=== PATIENT | female | born 1970 | race Caucasian/White ===

== ENCOUNTER 2018-01-15 22:58 | Inpatient (IN) | payer MEDICAID ==
[2018-01-15] MEDS: CEFEPIME 2GM/50 ML (PMX) 50 ML IVPB (23:31)
[2018-01-15] MEDS: ONDANSETRON 4 MG INJ IV (23:31)
[2018-01-15] MEDS: LACTATED RINGER'S 1,000 ML IV (23:33)
[2018-01-15] MEDS: SOD CHLORIDE 0.9% 1,000 ML IV (23:33)
[2018-01-15 23:39] LABS: ADD MAN DIFF? NO
[2018-01-15 23:41] LABS: WHITE BLOOD COUNT 8.3 10^3/ul (4.8-10.8)
[2018-01-15 23:41] LABS: ABNORMAL IP MESSAGE 1; BASOPHILS % 0.4 % (0.0-2.0); EOSINOPHILS % 0.1 % (0.0-7.0); HEMATOCRIT 20.2 % (37.0-47.0); LYMPHOCYTES # 1.4 10^3/ul (0.8-2.9); LYMPHOCYTES % 16.6 % (15.0-51.0); MEAN CORPUSCULAR HEMOGLOBIN 12.9 pg (29.0-33.0); MEAN CORPUSCULAR HGB CONC 23.3 g/dl (32.0-37.0); MEAN CORPUSCULAR VOLUME 55.6 fl (82.0-101.0); MONOCYTE # 0.5 10^3/ul (0.3-0.9); MONOCYTES % 5.6 % (0.0-11.0); NEUTROPHIL # 6.3 10^3/ul (1.6-7.5); NEUTROPHILS % 76.6 % (39.0-77.0); NUCLEATED RED BLOOD CELLS # 0.1 10^3/ul (0.0-0.0); NUCLEATED RED BLOOD CELLS% 1.1 /100WBC (0.0-0.0); PLATELET COUNT 331 10^3/UL (140-415); RED BLOOD COUNT 3.63 10^6/ul (4.20-5.40); RED CELL DISTRIBUTION WIDTH 26.4 % (11.5-14.5)
[2018-01-15 23:54] LABS: HEMOGLOBIN 4.7 g/dl (12.0-16.0); POSITIVE DIFF @See below
[2018-01-16 00:02] LABS: INR 1.09; PROTIME 14.3 Sec (11.9-14.9); PT RATIO 1.1
[2018-01-16 00:02] LABS: LACTIC ACID 1.6 mmol/L (0.5-2.0)
[2018-01-16 00:03] LABS: PARTIAL THROMBOPLASTIN TIME 28.4 Sec (25.0-35.0)
[2018-01-16 00:04] LABS: ALANINE AMINOTRANSFERASE 24 IU/L (13-69); ALBUMIN 4.8 g/dl (3.3-4.9); ALBUMIN/GLOBULIN RATIO 1.29; ALKALINE PHOSPHATASE 80 IU/L (42-121); ANION GAP 20 (8-16); ASPARTATE AMINO TRANSFERASE 30 IU/L (15-46); BILIRUBIN,INDIRECT 0.6 mg/dl (0-1.1); BILIRUBIN,TOTAL 0.6 mg/dl (0.2-1.3); BLOOD UREA NITROGEN 7 mg/dl (7-20); CALCIUM 9.4 mg/dl (8.4-10.2); CARBON DIOXIDE 22 mmol/L (21-31); CHLORIDE 104 mmol/L (97-110); CREATININE 0.55 mg/dl (0.44-1.00); GLUCOSE 117 mg/dl (70-220); LIPASE 92 U/L (23-300); POTASSIUM 3.6 mmol/L (3.5-5.1); SODIUM 142 mmol/L (135-144); TOTAL PROTEIN 8.5 g/dl (6.1-8.1)
[2018-01-16] MEDS: SOD CHLORIDE 0.9% 250 ML IV (00:15)
[2018-01-16 00:16] LABS: TROPONIN-I < 0.010 ng/ml (0.000-0.120)
[2018-01-16 00:20] LABS: FREE THYROXINE INDEX (Calc) 3.82 ug/ml (0.65-3.89); T3 UPTAKE 30.1 % (23.5-40.5); T4 (THYROXINE) 12.7 ug/dl (5.5-11.0)
[2018-01-16 00:56] LABS: ADD UMIC YES; UR ASCORBIC ACID NEGATIVE (NEGATIVE); UR BACTERIA FEW /HPF (NONE SEEN); UR BILIRUBIN (Dip) NEGATIVE (NEGATIVE); UR BLOOD (Dip) 2+ mg/dL (NEGATIVE); UR CLARITY SLIGHTLY CLOUDY (CLEAR); UR COLOR YELLOW (YELLOW); UR GLUCOSE (Dip) NEGATIVE (NEGATIVE); UR KETONES (Dip) 1+ mg/dL (NEGATIVE); UR LEUKOCYTE ESTERASE (Dip) NEGATIVE Leu/ul (NEGATIVE); UR MUCUS MANY /HPF (NONE SEEN); UR NITRITE (Dip) NEGATIVE (NEGATIVE); UR RBC 2 /HPF (0-5); UR SPECIFIC GRAVITY (Dip) 1.024 (1.003-1.030); UR SQUAMOUS EPITHELIAL CELL FEW /HPF (FEW); UR TOTAL PROTEIN (Dip) 1+ mg/dl (NEGATIVE); UR UROBILINOGEN (Dip) NEGATIVE (NEGATIVE); UR WBC 2 /HPF (0-5)
[2018-01-16 01:39] LABS: AMPHETAMINE/METHAMPHETAMINE Negative (NEGATIVE); BARBITURATES Negative (NEGATIVE); BENZODIAZEPINES Negative (NEGATIVE); CANNABINOIDS Negative (NEGATIVE); COCAINE Negative (NEGATIVE); OPIATES Negative (NEGATIVE)
[2018-01-16] MEDS: morphine 4 MG/ML VIAL IV (02:01)
[2018-01-16] MEDS: ASPIRIN 81 MG TAB PO (02:02)
[2018-01-16] MEDS ORDERED: ALBUTEROL/IPRATROPIUM (NEB) 3 ML AMP NEB (03:00)
[2018-01-16 04:08] LABS: ADD MAN DIFF? NO
[2018-01-16] MEDS: FUROSEMIDE 40 MG INJ IV (04:08)
[2018-01-16 04:29] LABS: ABNORMAL IP MESSAGE 1; BASOPHILS % 0.3 % (0.0-2.0); EOSINOPHILS % 0.3 % (0.0-7.0); LYMPHOCYTES # 1.3 10^3/ul (0.8-2.9); LYMPHOCYTES % 17.6 % (15.0-51.0); MEAN CORPUSCULAR HEMOGLOBIN 13.3 pg (29.0-33.0); MEAN CORPUSCULAR HGB CONC 24.2 g/dl (32.0-37.0); MEAN CORPUSCULAR VOLUME 55.1 fl (82.0-101.0); MONOCYTE # 0.4 10^3/ul (0.3-0.9); MONOCYTES % 5.7 % (0.0-11.0); NEUTROPHIL # 5.6 10^3/ul (1.6-7.5); NEUTROPHILS % 74.9 % (39.0-77.0); NUCLEATED RED BLOOD CELLS # 0.1 10^3/ul (0.0-0.0); NUCLEATED RED BLOOD CELLS% 0.9 /100WBC (0.0-0.0); RED CELL DISTRIBUTION WIDTH 25.9 % (11.5-14.5)
[2018-01-16 04:29] LABS: WHITE BLOOD COUNT 7.4 10^3/ul (4.8-10.8)
[2018-01-16 04:34] LABS: HEMATOCRIT 15.7 % (37.0-47.0); IRON 12 ug/dl (35-150); RED BLOOD COUNT 2.85 10^6/ul (4.20-5.40)
[2018-01-16 04:35] LABS: LACTATE DEHYDROGENASE 496 IU/L (313-618); LACTIC ACID 0.8 mmol/L (0.5-2.0)
[2018-01-16 04:35] LABS: PLATELET COUNT 248 10^3/UL (140-415); POSITIVE DIFF @See below; RETICULOCYTE COUNT # 0.031 X10^6 (0.020-0.110); RETICULOCYTE COUNT % 1.1 % (0.5-1.5)
[2018-01-16 04:36] LABS: ALANINE AMINOTRANSFERASE 23 IU/L (13-69); ALBUMIN 3.4 g/dl (3.3-4.9); ALBUMIN/GLOBULIN RATIO 1.09; ALKALINE PHOSPHATASE 55 IU/L (42-121); ANION GAP 15 (8-16); ASPARTATE AMINO TRANSFERASE 19 IU/L (15-46); BILIRUBIN,INDIRECT 0.3 mg/dl (0-1.1); BILIRUBIN,TOTAL 0.3 mg/dl (0.2-1.3); BLOOD UREA NITROGEN 5 mg/dl (7-20); CARBON DIOXIDE 21 mmol/L (21-31); CHLORIDE 111 mmol/L (97-110); CREATININE 0.53 mg/dl (0.44-1.00); GLUCOSE 101 mg/dl (70-220); HEMOGLOBIN 3.8 g/dl (12.0-16.0); POTASSIUM 3.7 mmol/L (3.5-5.1); SODIUM 143 mmol/L (135-144); TOTAL PROTEIN 6.5 g/dl (6.1-8.1)
[2018-01-16 04:43] LABS: % IRON SATURATION 3 % SAT (22-52); TOTAL IRON BINDING CAPACITY 359 ug/dl (241-421)
[2018-01-16 05:12] LABS: FERRITIN 3.7 ng/ml (6.2-137.0)
[2018-01-16] MEDS: ACETAMINOPHEN 650MG/20.3ML CUP PO (06:07)
[2018-01-16] MEDS ORDERED: HEPARIN 5,000 UNIT/0.5 ML VIAL SC (09:00)
[2018-01-16] MEDS: CEFTRIAXONE 1 GM/50 ML (PMX) 50 ML IVPB ×2 (10:17→20:07)
[2018-01-16] MEDS: ASPIRIN (EC) 81 MG TAB PO (10:17)
[2018-01-16] MEDS: FAMOTIDINE 20 MG INJ IV ×2 (10:17→20:06)
[2018-01-16] MEDS: SOD CHLORIDE 0.9% 250 ML IV* (10:37)
[2018-01-16] MEDS: DOCUSATE SODIUM 100 MG CAP PO ×3 (13:00→20:01)
[2018-01-16] MEDS ORDERED: LEVETIRACETAM 1000 MG (PMX) 100 ML IVPB (16:00)
[2018-01-16 16:27] LABS: IMMEDIATE SPIN CROSSMATCH 1 6
[2018-01-16] MEDS: LIDOCAINE 1% (MPF) 5 ML VIAL SC (17:25)
[2018-01-16] MEDS: NACL 3% 500 ML IV ×3 (18:38→21:47)
[2018-01-16] MEDS: LEVETIRACETAM 500 MG (PMX) 100 ML IVPB (18:38)
[2018-01-16 19:29] LABS: CHOL/HDL RATIO 3.3 RATIO; HDL CHOLESTEROL 24 mg/dl (34-88); LDL CHOLESTEROL,CALCULATED 42 mg/dl; TRIGLYCERIDES 69 mg/dl (0-149)
[2018-01-16 19:29] LABS: CHOLESTEROL 80 mg/dl (100-200)
[2018-01-16 19:47] LABS: ANION GAP 14 (8-16); BLOOD UREA NITROGEN 5 mg/dl (7-20); CALCIUM 8.3 mg/dl (8.4-10.2); CARBON DIOXIDE 22 mmol/L (21-31); CHLORIDE 107 mmol/L (97-110); CREATININE 0.51 mg/dl (0.44-1.00); GLUCOSE 102 mg/dl (70-220); POTASSIUM 3.3 mmol/L (3.5-5.1); SODIUM 140 mmol/L (135-144)
[2018-01-16] MEDS: ATORVASTATIN 20 MG TAB PO (20:01)
[2018-01-16] MEDS: SOD FERRIC GLUC COMPLX 125 MG in SOD CHLORIDE 0.9% 100 ML IVPB (20:26)
[2018-01-17 01:26] LABS: WHITE BLOOD COUNT 5.1 10^3/ul (4.8-10.8)
[2018-01-17 01:26] LABS: ABNORMAL IP MESSAGE 1; HEMOGLOBIN 8.2 g/dl (12.0-16.0); MEAN CORPUSCULAR HGB CONC 28.9 g/dl (32.0-37.0); NUCLEATED RED BLOOD CELLS% 2.4 /100WBC (0.0-0.0)
[2018-01-17 01:32] LABS: ADD MAN DIFF? YES; HEMATOCRIT 28.4 % (37.0-47.0); MEAN CORPUSCULAR HEMOGLOBIN 20.2 pg (29.0-33.0); MEAN CORPUSCULAR VOLUME 70.1 fl (82.0-101.0); PLATELET COUNT 169 10^3/UL (140-415); POSITIVE DIFF @See below; RED BLOOD COUNT 4.05 10^6/ul (4.20-5.40)
[2018-01-17 01:47] LABS: ANION GAP 12 (8-16); BLOOD UREA NITROGEN 4 mg/dl (7-20); CALCIUM 8.1 mg/dl (8.4-10.2); CARBON DIOXIDE 21 mmol/L (21-31); CHLORIDE 116 mmol/L (97-110); CREATININE 0.56 mg/dl (0.44-1.00); GLUCOSE 103 mg/dl (70-220); POTASSIUM 3.3 mmol/L (3.5-5.1); SODIUM 146 mmol/L (135-144)
[2018-01-17 04:00] LABS: ANISOCYTOSIS 2+ (0-0); BAND NEUTROPHILS #M 0.1 10^3/ul (0.0-0.6); BAND NEUTROPHILS % (M) 3 % (0-4); ERYTHROBLAST% (NRBC) (M) 5 % (0-0); GIANT THROMBO% (M) 1 % (0-0); HYPOCHROMASIA 3+ (0-0); LYMPHOCYTES #M 0.4 10^3/ul (0.8-2.9); LYMPHOCYTES % (M) 9 % (15-51); MICROCYTOSIS 2+ (0-0); MONOCYTE #M 0.1 10^3/ul (0.3-0.9); MONOCYTES % (M) 3 % (0-11); PLATELET ESTIMATE NORMAL; POIKILOCYTOSIS 2+ (0-0); POLYCHROMASIA 3+ (0-0); REACTIVE LYMPHOCYTES% (M) 1 % (0-0); SEG NEUT #M 4.3 10^3/ul (1.6-7.5); SEGMENTED NEUTROPHILS (M) % 84 % (39-77); SMUDGE%M 6 % (0-0)
[2018-01-17 05:25] LABS: WHITE BLOOD COUNT 5.9 10^3/ul (4.8-10.8)
[2018-01-17 05:25] LABS: ABNORMAL IP MESSAGE 1; HEMATOCRIT 27.8 % (37.0-47.0); MEAN CORPUSCULAR HEMOGLOBIN 20.3 pg (29.0-33.0); MEAN CORPUSCULAR HGB CONC 28.8 g/dl (32.0-37.0); MEAN CORPUSCULAR VOLUME 70.6 fl (82.0-101.0); NUCLEATED RED BLOOD CELLS% 3.2 /100WBC (0.0-0.0); PLATELET COUNT 145 10^3/UL (140-415); RED BLOOD COUNT 3.94 10^6/ul (4.20-5.40)
[2018-01-17 05:35] LABS: ADD MAN DIFF? YES; POSITIVE DIFF @See below
[2018-01-17 05:45] LABS: ANION GAP 9 (8-16); BLOOD UREA NITROGEN 5 mg/dl (7-20); CALCIUM 8.1 mg/dl (8.4-10.2); CARBON DIOXIDE 20 mmol/L (21-31); CHLORIDE 123 mmol/L (97-110); CREATININE 0.54 mg/dl (0.44-1.00); GLUCOSE 102 mg/dl (70-220); POTASSIUM 3.2 mmol/L (3.5-5.1); SODIUM 149 mmol/L (135-144)
[2018-01-17] MEDS: NACL 3% 500 ML IV (05:48)
[2018-01-17 07:00] LABS: ANISOCYTOSIS 3+ (0-0); ERYTHROBLAST% (NRBC) (M) 8 % (0-0); GIANT THROMBO% (M) 1 % (0-0); HYPOCHROMASIA 2+ (0-0); LYMPHOCYTES #M 0.5 10^3/ul (0.8-2.9); LYMPHOCYTES % (M) 9 % (15-51); MICROCYTOSIS 3+ (0-0); MONOCYTE #M 0.4 10^3/ul (0.3-0.9); MONOCYTES % (M) 7 % (0-11); OVALOCYTES 1+ (0-0); PLATELET ESTIMATE NORMAL; POIKILOCYTOSIS 2+ (0-0); POLYCHROMASIA 3+ (0-0); SEGMENTED NEUTROPHILS (M) % 84 % (39-77); SMUDGE%M 12 % (0-0)
[2018-01-17] MEDS: DOCUSATE SODIUM 100 MG CAP PO ×3 (08:49→20:46)
[2018-01-17] MEDS: LEVETIRACETAM 500 MG (PMX) 100 ML IVPB ×2 (08:50→20:52)
[2018-01-17] MEDS: CEFTRIAXONE 1 GM/50 ML (PMX) 50 ML IVPB ×2 (09:22→20:53)
[2018-01-17] MEDS: FAMOTIDINE 20 MG INJ IV ×2 (09:22→20:53)
[2018-01-17] MEDS ORDERED: VANCOMYCIN IV PER PHARMACY XX (10:00)
[2018-01-17] MEDS: POTASSIUM CHLORIDE (SR) 20 MEQ TAB PO (10:10)
[2018-01-17 12:08] LABS: ANION GAP 12 (8-16); BLOOD UREA NITROGEN 3 mg/dl (7-20); CALCIUM 8.1 mg/dl (8.4-10.2); CARBON DIOXIDE 21 mmol/L (21-31); CHLORIDE 120 mmol/L (97-110); CREATININE 0.51 mg/dl (0.44-1.00); GLUCOSE 120 mg/dl (70-220); POTASSIUM 3.3 mmol/L (3.5-5.1); SODIUM 150 mmol/L (135-144)
[2018-01-17] MEDS: VANCOMYCIN 1.25 GM in SOD CHLORIDE 0.9% 250 ML IVPB (12:20)
[2018-01-17 12:40] LABS: HIV 1&2 ANTIBODY NEGATIVE (NEGATIVE)
[2018-01-17] MEDS: NS + KCL 20 MEQ 1,000 ML IV (13:25)
[2018-01-17 15:39] LABS: OCCULT BLOOD STOOL NEGATIVE (NEGATIVE)
[2018-01-17] MEDS: SOD FERRIC GLUC COMPLX 125 MG in SOD CHLORIDE 0.9% 100 ML IVPB (17:56)
[2018-01-17 18:39] LABS: ANION GAP 8 (8-16); BLOOD UREA NITROGEN 4 mg/dl (7-20); CALCIUM 8.2 mg/dl (8.4-10.2); CARBON DIOXIDE 19 mmol/L (21-31); CHLORIDE 124 mmol/L (97-110); CREATININE 0.55 mg/dl (0.44-1.00); GLUCOSE 108 mg/dl (70-220); POTASSIUM 3.6 mmol/L (3.5-5.1); SODIUM 147 mmol/L (135-144)
[2018-01-17 19:34] LABS: RAPID PLASMA REAGIN NONREACTIVE (NR)
[2018-01-17] MEDS: VANCOMYCIN 750 MG in SOD CHLORIDE 0.9% 150 ML IVPB (20:13)
[2018-01-17] MEDS: ATORVASTATIN 80 MG TAB PO (20:53)
[2018-01-18] MEDS: NS + KCL 20 MEQ 1,000 ML IV (00:03)
[2018-01-18 00:52] LABS: ANION GAP 14 (8-16); BLOOD UREA NITROGEN 3 mg/dl (7-20); CALCIUM 8.4 mg/dl (8.4-10.2); CARBON DIOXIDE 18 mmol/L (21-31); CHLORIDE 117 mmol/L (97-110); GLUCOSE 93 mg/dl (70-220); POTASSIUM 3.4 mmol/L (3.5-5.1); SODIUM 146 mmol/L (135-144)
[2018-01-18 05:02] LABS: ADD MAN DIFF? NO
[2018-01-18 05:10] LABS: WHITE BLOOD COUNT 7.6 10^3/ul (4.8-10.8)
[2018-01-18 05:10] LABS: ABNORMAL IP MESSAGE 1; BASOPHIL # 0.1 10^3/ul (0.0-0.1); BASOPHILS % 1.2 % (0.0-2.0); EOSINOPHILS % 0.4 % (0.0-7.0); LYMPHOCYTES # 1.4 10^3/ul (0.8-2.9); LYMPHOCYTES % 18.1 % (15.0-51.0); MEAN CORPUSCULAR HEMOGLOBIN 21.7 pg (29.0-33.0); MEAN CORPUSCULAR HGB CONC 29.2 g/dl (32.0-37.0); MEAN CORPUSCULAR VOLUME 74.3 fl (82.0-101.0); MONOCYTE # 0.6 10^3/ul (0.3-0.9); MONOCYTES % 7.4 % (0.0-11.0); NEUTROPHIL # 5.4 10^3/ul (1.6-7.5); NEUTROPHILS % 70.4 % (39.0-77.0); NUCLEATED RED BLOOD CELLS # 0.4 10^3/ul (0.0-0.0); NUCLEATED RED BLOOD CELLS% 4.9 /100WBC (0.0-0.0); PLATELET COUNT 147 10^3/UL (140-415)
[2018-01-18] MEDS: VANCOMYCIN 750 MG in SOD CHLORIDE 0.9% 150 ML IVPB ×3 (05:17→19:56)
[2018-01-18 05:19] LABS: HEMATOCRIT 34.2 % (37.0-47.0); POSITIVE DIFF @See below
[2018-01-18 05:40] LABS: ANION GAP 9 (8-16); BLOOD UREA NITROGEN 4 mg/dl (7-20); CALCIUM 8.4 mg/dl (8.4-10.2); CARBON DIOXIDE 18 mmol/L (21-31); CHLORIDE 120 mmol/L (97-110); CREATININE 0.49 mg/dl (0.44-1.00); GLUCOSE 86 mg/dl (70-220); POTASSIUM 3.4 mmol/L (3.5-5.1); SODIUM 144 mmol/L (135-144)
[2018-01-18] MEDS: LEVETIRACETAM 500 MG (PMX) 100 ML IVPB ×2 (08:44→20:06)
[2018-01-18] MEDS: DOCUSATE SODIUM 100 MG CAP PO ×2 (09:01→20:05)
[2018-01-18] MEDS: FAMOTIDINE 20 MG INJ IV ×2 (09:01→20:05)
[2018-01-18] MEDS: CEFTRIAXONE 1 GM/50 ML (PMX) 50 ML IVPB ×2 (09:05→20:06)
[2018-01-18] MEDS: NACL 3% 100 ML IV (10:15)
[2018-01-18] MEDS: NACL 3% 500 ML IV ×2 (11:21→19:56)
[2018-01-18 11:36] LABS: ANION GAP 11 (8-16); BLOOD UREA NITROGEN 3 mg/dl (7-20); CALCIUM 8.4 mg/dl (8.4-10.2); CARBON DIOXIDE 18 mmol/L (21-31); CHLORIDE 118 mmol/L (97-110); CREATININE 0.46 mg/dl (0.44-1.00); GLUCOSE 87 mg/dl (70-220); POTASSIUM 3.4 mmol/L (3.5-5.1); SODIUM 144 mmol/L (135-144)
[2018-01-18 11:40] LABS: VANCOMYCIN,TROUGH 11.7 ug/ml (10.0-20.0)
[2018-01-18 12:50] LABS: CANCER ANTIGEN 125 35.3 U/ml (0.0-35.0); CANCER ANTIGEN 19-9 12.2 U/ml (0.0-37.0)
[2018-01-18 12:50] LABS: ALPHA FETOPROTEIN 3.27 IU/L (0.00-7.21); CARCINOEMBRYONIC ANTIGEN 0.5 ng/ml (0.0-5.0)
[2018-01-18] MEDS: ALBUTEROL/IPRATROPIUM (NEB) 3 ML AMP HHN ×2 (15:29→19:32)
[2018-01-18] MEDS ORDERED: ALBUTEROL/IPRATROPIUM (NEB) 3 ML AMP HHN (15:30)
[2018-01-18] MEDS: RACEPINEPHRINE 2.25%(NEB) 0.5 ML AMP HHN (16:10)
[2018-01-18] MEDS: DEXAMETHASONE 10 MG/ML 1 ML INJ IV (16:42)
[2018-01-18 17:15] LABS: AADO2 Arterial 45.6 mmHg (7.0-24.0); Allen Test ACCEPTAB; Arterial Base Excess -6.1 mmol/L (-3.0-3); Arterial Blood Gas Oxygen Sat 95.2 mmHG (95.0-98.0); Arterial COHb 0.7 % (0.0-3.0); Arterial Fraction of Oxyhgb 94.2 % (93.0-99.0); Arterial HCO3 16.7 mmol/L (22.0-26.0); Arterial MetHb 0.4 % (0.0-1.5); Arterial Total Hemglobin 11.6 g/dl (12.0-18.0); Arterial pCO2 25.5 mmhg (35-45); MODE ROOM AIR; Site Right Radial
[2018-01-18] MEDS: SOD FERRIC GLUC COMPLX 125 MG in SOD CHLORIDE 0.9% 100 ML IVPB (17:26)
[2018-01-18 18:23] LABS: ANION GAP 9 (8-16); BLOOD UREA NITROGEN 3 mg/dl (7-20); CALCIUM 8.6 mg/dl (8.4-10.2); CARBON DIOXIDE 18 mmol/L (21-31); CHLORIDE 119 mmol/L (97-110); CREATININE 0.48 mg/dl (0.44-1.00); GLUCOSE 109 mg/dl (70-220); POTASSIUM 3.2 mmol/L (3.5-5.1); SODIUM 143 mmol/L (135-144)
[2018-01-18] MEDS ORDERED: NACL 3% 150 ML IV (19:00)
[2018-01-18] MEDS: NACL 3% 150 ML IV (19:30)
[2018-01-18] MEDS: POTASSIUM CHLORIDE 100 ML IVPB ×2 (19:58→21:49)
[2018-01-18] MEDS: ATORVASTATIN 80 MG TAB PO (20:06)
[2018-01-19] MEDS: NACL 3% 500 ML IV ×4 (00:40→20:33)
[2018-01-19] MEDS: ALBUTEROL/IPRATROPIUM (NEB) 3 ML AMP HHN ×2 (01:10→08:49)
[2018-01-19 01:31] LABS: ANION GAP 15 (8-16); BLOOD UREA NITROGEN 2 mg/dl (7-20); CALCIUM 8.7 mg/dl (8.4-10.2); CARBON DIOXIDE 17 mmol/L (21-31); CHLORIDE 117 mmol/L (97-110); CREATININE 0.47 mg/dl (0.44-1.00); GLUCOSE 117 mg/dl (70-220); SODIUM 145 mmol/L (135-144)
[2018-01-19] MEDS: VANCOMYCIN 750 MG in SOD CHLORIDE 0.9% 150 ML IVPB ×2 (03:11→11:30)
[2018-01-19 06:38] LABS: ADD MAN DIFF? NO
[2018-01-19 06:57] LABS: ABNORMAL IP MESSAGE 1; BASOPHILS % 0.4 % (0.0-2.0); HEMATOCRIT 36.6 % (37.0-47.0); HEMOGLOBIN 10.8 g/dl (12.0-16.0); LYMPHOCYTES # 0.8 10^3/ul (0.8-2.9); LYMPHOCYTES % 10.9 % (15.0-51.0); MEAN CORPUSCULAR HEMOGLOBIN 21.9 pg (29.0-33.0); MEAN CORPUSCULAR HGB CONC 29.5 g/dl (32.0-37.0); MEAN CORPUSCULAR VOLUME 74.2 fl (82.0-101.0); MONOCYTE # 0.4 10^3/ul (0.3-0.9); MONOCYTES % 5.4 % (0.0-11.0); NEUTROPHIL # 5.9 10^3/ul (1.6-7.5); NEUTROPHILS % 81.8 % (39.0-77.0); NUCLEATED RED BLOOD CELLS # 0.2 10^3/ul (0.0-0.0); NUCLEATED RED BLOOD CELLS% 2.2 /100WBC (0.0-0.0); RED BLOOD COUNT 4.93 10^6/ul (4.20-5.40)
[2018-01-19 06:57] LABS: WHITE BLOOD COUNT 7.2 10^3/ul (4.8-10.8)
[2018-01-19 07:19] LABS: ANION GAP 15 (8-16); BLOOD UREA NITROGEN 2 mg/dl (7-20); CALCIUM 9.1 mg/dl (8.4-10.2); CARBON DIOXIDE 18 mmol/L (21-31); CHLORIDE 116 mmol/L (97-110); CREATININE 0.46 mg/dl (0.44-1.00); GLUCOSE 99 mg/dl (70-220); POTASSIUM 3.9 mmol/L (3.5-5.1); SODIUM 145 mmol/L (135-144)
[2018-01-19 07:29] LABS: PLATELET COUNT 209 10^3/UL (140-415); POSITIVE DIFF @See below
[2018-01-19] MEDS: FAMOTIDINE 20 MG INJ IV ×2 (08:00→21:44)
[2018-01-19] MEDS: DOCUSATE SODIUM 100 MG CAP PO ×2 (08:00→21:44)
[2018-01-19] MEDS: LEVETIRACETAM 500 MG (PMX) 100 ML IVPB ×2 (08:43→21:05)
[2018-01-19] MEDS: CEFTRIAXONE 1 GM/50 ML (PMX) 50 ML IVPB (09:07)
[2018-01-19 13:07] LABS: ANION GAP 10 (8-16); BLOOD UREA NITROGEN 3 mg/dl (7-20); CALCIUM 8.7 mg/dl (8.4-10.2); CARBON DIOXIDE 19 mmol/L (21-31); CHLORIDE 120 mmol/L (97-110); CREATININE 0.45 mg/dl (0.44-1.00); GLUCOSE 97 mg/dl (70-220); POTASSIUM 3.1 mmol/L (3.5-5.1); SODIUM 146 mmol/L (135-144)
[2018-01-19] MEDS: LEVOFLOXACIN 750MG/D5W (PMX) 150 ML IVPB (15:57)
[2018-01-19] MEDS: hydrALAzine 20 MG INJ IV (16:33)
[2018-01-19] MEDS: SOD FERRIC GLUC COMPLX 125 MG in SOD CHLORIDE 0.9% 100 ML IVPB (17:33)
[2018-01-19 19:15] LABS: ANION GAP 9 (8-16); BLOOD UREA NITROGEN 4 mg/dl (7-20); CALCIUM 8.4 mg/dl (8.4-10.2); CARBON DIOXIDE 19 mmol/L (21-31); CHLORIDE 120 mmol/L (97-110); CREATININE 0.43 mg/dl (0.44-1.00); GLUCOSE 94 mg/dl (70-220); POTASSIUM 3.2 mmol/L (3.5-5.1); SODIUM 145 mmol/L (135-144)
[2018-01-19] MEDS: ATORVASTATIN 80 MG TAB PO (21:44)
[2018-01-19] MEDS: ONDANSETRON 4 MG INJ IV (23:32)
[2018-01-20 01:32] LABS: ANION GAP 12 (8-16); BLOOD UREA NITROGEN 3 mg/dl (7-20); CALCIUM 8.5 mg/dl (8.4-10.2); CARBON DIOXIDE 20 mmol/L (21-31); CHLORIDE 117 mmol/L (97-110); CREATININE 0.46 mg/dl (0.44-1.00); GLUCOSE 90 mg/dl (70-220); SODIUM 146 mmol/L (135-144)
[2018-01-20] MEDS: POTASSIUM CHLORIDE 100 ML IVPB ×2 (03:42→05:51)
[2018-01-20] MEDS: NACL 3% 500 ML IV ×3 (03:44→19:25)
[2018-01-20 05:05] LABS: ADD MAN DIFF? NO
[2018-01-20 05:28] LABS: ABNORMAL IP MESSAGE 1; BASOPHILS % 0.5 % (0.0-2.0); EOSINOPHILS # 0.1 10^3/ul (0.0-0.5); HEMATOCRIT 34.5 % (37.0-47.0); HEMOGLOBIN 10.3 g/dl (12.0-16.0); LYMPHOCYTES % 12.6 % (15.0-51.0); MEAN CORPUSCULAR HEMOGLOBIN 22.4 pg (29.0-33.0); MEAN CORPUSCULAR HGB CONC 29.9 g/dl (32.0-37.0); MONOCYTE # 0.5 10^3/ul (0.3-0.9); MONOCYTES % 6.7 % (0.0-11.0); NEUTROPHILS % 78.7 % (39.0-77.0); NUCLEATED RED BLOOD CELLS # 0.1 10^3/ul (0.0-0.0); NUCLEATED RED BLOOD CELLS% 0.7 /100WBC (0.0-0.0); PLATELET COUNT 224 10^3/UL (140-415)
[2018-01-20 05:28] LABS: WHITE BLOOD COUNT 7.6 10^3/ul (4.8-10.8)
[2018-01-20 05:49] LABS: ANION GAP 9 (8-16); BLOOD UREA NITROGEN 3 mg/dl (7-20); CALCIUM 8.4 mg/dl (8.4-10.2); CARBON DIOXIDE 19 mmol/L (21-31); CHLORIDE 121 mmol/L (97-110); CREATININE 0.47 mg/dl (0.44-1.00); GLUCOSE 80 mg/dl (70-220); POTASSIUM 3.1 mmol/L (3.5-5.1); SODIUM 146 mmol/L (135-144)
[2018-01-20 05:51] LABS: POSITIVE DIFF @See below
[2018-01-20 06:47] LABS: ANION GAP 7 (8-16); BLOOD UREA NITROGEN 3 mg/dl (7-20); CALCIUM 8.3 mg/dl (8.4-10.2); CARBON DIOXIDE 20 mmol/L (21-31); CHLORIDE 121 mmol/L (97-110); CREATININE 0.48 mg/dl (0.44-1.00); GLUCOSE 81 mg/dl (70-220); POTASSIUM 3.3 mmol/L (3.5-5.1); SODIUM 145 mmol/L (135-144)
[2018-01-20] MEDS: hydrALAzine 20 MG INJ IV (06:54)
[2018-01-20] MEDS: LEVETIRACETAM 500 MG TAB PO ×2 (08:52→20:29)
[2018-01-20] MEDS: DOCUSATE SODIUM 100 MG CAP PO ×2 (08:54→20:29)
[2018-01-20 10:11] LABS: ANISOCYTOSIS 3+ (0-0); EOSINOPHILS % (M) 1 % (0-7); ERYTHROBLAST% (NRBC) (M) 1 % (0-0); GIANT THROMBO% (M) 3 % (0-0); LYMPHOCYTES #M 1.1 10^3/ul (0.8-2.9); LYMPHOCYTES % (M) 15 % (15-51); MICROCYTOSIS 2+ (0-0); MONOCYTE #M 0.3 10^3/ul (0.3-0.9); MONOCYTES % (M) 4 % (0-11); MYELOCYTES % (M) 1 % (0-0); PLATELET ESTIMATE NORMAL; POIKILOCYTOSIS 3+ (0-0); POLYCHROMASIA 3+ (0-0); SEGMENTED NEUTROPHILS (M) % 79 % (39-77); SMUDGE%M 3 % (0-0)
[2018-01-20 15:08] LABS: ANION GAP 13 (8-16); CALCIUM 8.6 mg/dl (8.4-10.2); CARBON DIOXIDE 19 mmol/L (21-31); CHLORIDE 116 mmol/L (97-110); CREATININE 0.42 mg/dl (0.44-1.00); GLUCOSE 85 mg/dl (70-220); POTASSIUM 3.3 mmol/L (3.5-5.1); SODIUM 145 mmol/L (135-144)
[2018-01-20 15:20] LABS: BLOOD UREA NITROGEN < 2 mg/dl (7-20)
[2018-01-20] MEDS: SOD FERRIC GLUC COMPLX 125 MG in SOD CHLORIDE 0.9% 100 ML IVPB (17:22)
[2018-01-20] MEDS: POTASSIUM CHLORIDE (SR) 20 MEQ TAB PO (20:28)
[2018-01-20] MEDS: ATORVASTATIN 80 MG TAB PO (20:29)
[2018-01-20 20:57] LABS: ANION GAP 8 (8-16); BLOOD UREA NITROGEN 5 mg/dl (7-20); CALCIUM 8.8 mg/dl (8.4-10.2); CARBON DIOXIDE 20 mmol/L (21-31); CHLORIDE 122 mmol/L (97-110); CREATININE 0.45 mg/dl (0.44-1.00); GLUCOSE 107 mg/dl (70-220); POTASSIUM 3.1 mmol/L (3.5-5.1); SODIUM 147 mmol/L (135-144)
[2018-01-21] MEDS: NACL 3% 500 ML IV ×3 (02:11→09:57)
[2018-01-21 05:04] LABS: ADD MAN DIFF? NO
[2018-01-21 05:06] LABS: ABNORMAL IP MESSAGE 1; BASOPHILS % 0.8 % (0.0-2.0); EOSINOPHILS # 0.5 10^3/ul (0.0-0.5); EOSINOPHILS % 10.2 % (0.0-7.0); HEMATOCRIT 35.2 % (37.0-47.0); HEMOGLOBIN 10.1 g/dl (12.0-16.0); LYMPHOCYTES % 18.4 % (15.0-51.0); MEAN CORPUSCULAR HEMOGLOBIN 22.1 pg (29.0-33.0); MEAN CORPUSCULAR HGB CONC 28.7 g/dl (32.0-37.0); MONOCYTE # 0.4 10^3/ul (0.3-0.9); MONOCYTES % 6.8 % (0.0-11.0); NEUTROPHIL # 3.4 10^3/ul (1.6-7.5); NEUTROPHILS % 63.4 % (39.0-77.0); PLATELET COUNT 215 10^3/UL (140-415); RED BLOOD COUNT 4.57 10^6/ul (4.20-5.40)
[2018-01-21 05:06] LABS: WHITE BLOOD COUNT 5.3 10^3/ul (4.8-10.8)
[2018-01-21 05:21] LABS: POSITIVE DIFF @See below
[2018-01-21 05:27] LABS: ANION GAP 11 (8-16); BLOOD UREA NITROGEN 3 mg/dl (7-20); CALCIUM 8.5 mg/dl (8.4-10.2); CARBON DIOXIDE 19 mmol/L (21-31); CHLORIDE 122 mmol/L (97-110); CREATININE 0.44 mg/dl (0.44-1.00); GLUCOSE 77 mg/dl (70-220); POTASSIUM 3.6 mmol/L (3.5-5.1); SODIUM 148 mmol/L (135-144)
[2018-01-21] MEDS: hydrALAzine 20 MG INJ IV ×2 (06:29→13:05)
[2018-01-21] MEDS: DOCUSATE SODIUM 100 MG CAP PO ×2 (08:09→21:00)
[2018-01-21] MEDS: LEVETIRACETAM 500 MG TAB PO ×2 (09:53→21:58)
[2018-01-21] MEDS: ONDANSETRON 4 MG INJ IV (10:31)
[2018-01-21] MEDS: ATORVASTATIN 80 MG TAB PO (21:58)
[2018-01-22] MEDS: ONDANSETRON 4 MG INJ IV (03:03)
[2018-01-22] MEDS: DOCUSATE SODIUM 100 MG CAP PO ×2 (09:00→20:40)
[2018-01-22] MEDS: LEVETIRACETAM 500 MG TAB PO ×2 (09:02→20:40)
[2018-01-22 09:08] LABS: ANION GAP 13 (8-16); BLOOD UREA NITROGEN 3 mg/dl (7-20); CALCIUM 8.7 mg/dl (8.4-10.2); CARBON DIOXIDE 21 mmol/L (21-31); CHLORIDE 112 mmol/L (97-110); CREATININE 0.42 mg/dl (0.44-1.00); GLUCOSE 79 mg/dl (70-220); SODIUM 143 mmol/L (135-144)
[2018-01-22] MEDS: POTASSIUM CHLORIDE (SR) 20 MEQ TAB PO (11:01)
[2018-01-22] MEDS: ALTEPLASE (CATHFLO) 2 MG INJ CATHETER (11:04)
[2018-01-22] MEDS: hydrALAzine 20 MG INJ IV (12:47)
[2018-01-22] MEDS: ATORVASTATIN 80 MG TAB PO (20:40)
[2018-01-23] MEDS: DOCUSATE SODIUM 100 MG CAP PO ×2 (08:28→21:08)
[2018-01-23] MEDS: hydrALAzine 20 MG INJ IV (08:29)
[2018-01-23] MEDS: LEVETIRACETAM 500 MG TAB PO ×2 (08:29→21:08)
[2018-01-23 09:17] LABS: ANION GAP 9 (8-16); BLOOD UREA NITROGEN 3 mg/dl (7-20); CALCIUM 8.6 mg/dl (8.4-10.2); CARBON DIOXIDE 25 mmol/L (21-31); CHLORIDE 109 mmol/L (97-110); CREATININE 0.47 mg/dl (0.44-1.00); GLUCOSE 81 mg/dl (70-220); POTASSIUM 3.3 mmol/L (3.5-5.1); SODIUM 140 mmol/L (135-144)
[2018-01-23 17:48] LABS: ANION GAP 10 (8-16); BLOOD UREA NITROGEN 3 mg/dl (7-20); CALCIUM 8.6 mg/dl (8.4-10.2); CARBON DIOXIDE 26 mmol/L (21-31); CHLORIDE 108 mmol/L (97-110); CREATININE 0.49 mg/dl (0.44-1.00); GLUCOSE 89 mg/dl (70-220); POTASSIUM 3.4 mmol/L (3.5-5.1); SODIUM 141 mmol/L (135-144)
[2018-01-23] MEDS ORDERED: MANNITOL 25% 50 ML INJ IV* (18:00)
[2018-01-23] MEDS: LIDOCAINE 1% (MPF) 5 ML VIAL SC (18:20)
[2018-01-23] MEDS: MANNITOL 20% 250 ML IV (18:30)
[2018-01-23] MEDS ORDERED: MANNITOL 20% 200 ML IV (18:30)
[2018-01-23] MEDS: NACL 3% 500 ML IV (21:08)
[2018-01-23] MEDS: ATORVASTATIN 80 MG TAB PO (21:08)
[2018-01-23] MEDS: NACL 3% 200 ML IV (21:08)
[2018-01-23 23:06] LABS: ANION GAP 10 (8-16); BLOOD UREA NITROGEN 2 mg/dl (7-20); CALCIUM 8.9 mg/dl (8.4-10.2); CARBON DIOXIDE 26 mmol/L (21-31); CHLORIDE 110 mmol/L (97-110); CREATININE 0.52 mg/dl (0.44-1.00); GLUCOSE 92 mg/dl (70-220); POTASSIUM 3.5 mmol/L (3.5-5.1); SODIUM 142 mmol/L (135-144)
[2018-01-24] MEDS: NACL 3% 500 ML IV ×5 (02:10→23:32)
[2018-01-24 04:57] LABS: ADD MAN DIFF? NO
[2018-01-24 05:00] LABS: ABNORMAL IP MESSAGE 1; BASOPHIL # 0.1 10^3/ul (0.0-0.1); EOSINOPHILS # 0.4 10^3/ul (0.0-0.5); EOSINOPHILS % 7.9 % (0.0-7.0); HEMATOCRIT 39.4 % (37.0-47.0); HEMOGLOBIN 11.9 g/dl (12.0-16.0); LYMPHOCYTES # 1.4 10^3/ul (0.8-2.9); LYMPHOCYTES % 26.7 % (15.0-51.0); MEAN CORPUSCULAR HEMOGLOBIN 23.7 pg (29.0-33.0); MEAN CORPUSCULAR HGB CONC 30.2 g/dl (32.0-37.0); MEAN CORPUSCULAR VOLUME 78.3 fl (82.0-101.0); MONOCYTE # 0.4 10^3/ul (0.3-0.9); MONOCYTES % 8.1 % (0.0-11.0); NEUTROPHIL # 2.8 10^3/ul (1.6-7.5); NEUTROPHILS % 55.9 % (39.0-77.0); PLATELET COUNT 295 10^3/UL (140-415); RED BLOOD COUNT 5.03 10^6/ul (4.20-5.40)
[2018-01-24 05:00] LABS: WHITE BLOOD COUNT 5.1 10^3/ul (4.8-10.8)
[2018-01-24 05:23] LABS: POSITIVE DIFF @See below
[2018-01-24 05:27] LABS: ANION GAP 9 (8-16); BLOOD UREA NITROGEN 2 mg/dl (7-20); CALCIUM 8.7 mg/dl (8.4-10.2); CARBON DIOXIDE 27 mmol/L (21-31); CHLORIDE 114 mmol/L (97-110); CREATININE 0.48 mg/dl (0.44-1.00); GLUCOSE 79 mg/dl (70-220); POTASSIUM 3.4 mmol/L (3.5-5.1); SODIUM 147 mmol/L (135-144)
[2018-01-24] MEDS: DOCUSATE SODIUM 100 MG CAP PO ×2 (08:43→16:44)
[2018-01-24] MEDS: LEVETIRACETAM 500 MG TAB PO ×2 (09:18→20:04)
[2018-01-24 11:29] LABS: ANION GAP 12 (8-16); BLOOD UREA NITROGEN 4 mg/dl (7-20); CALCIUM 8.3 mg/dl (8.4-10.2); CARBON DIOXIDE 24 mmol/L (21-31); CHLORIDE 112 mmol/L (97-110); CREATININE 0.45 mg/dl (0.44-1.00); GLUCOSE 84 mg/dl (70-220); POTASSIUM 3.1 mmol/L (3.5-5.1); SODIUM 145 mmol/L (135-144)
[2018-01-24] MEDS: POTASSIUM CHLORIDE (SR) 20 MEQ TAB PO (14:50)
[2018-01-24 17:05] LABS: ANION GAP 13 (8-16); BLOOD UREA NITROGEN 3 mg/dl (7-20); CALCIUM 8.5 mg/dl (8.4-10.2); CARBON DIOXIDE 23 mmol/L (21-31); CHLORIDE 111 mmol/L (97-110); CREATININE 0.45 mg/dl (0.44-1.00); GLUCOSE 80 mg/dl (70-220); POTASSIUM 3.7 mmol/L (3.5-5.1); SODIUM 143 mmol/L (135-144)
[2018-01-24] MEDS: NACL 3% 200 ML IV (19:04)
[2018-01-24] MEDS: ATORVASTATIN 80 MG TAB PO (20:03)
[2018-01-24] MEDS: hydrALAzine 20 MG INJ IV (22:58)
[2018-01-24 23:17] LABS: ANION GAP 8 (8-16); CALCIUM 8.5 mg/dl (8.4-10.2); CARBON DIOXIDE 24 mmol/L (21-31); CHLORIDE 114 mmol/L (97-110); CREATININE 0.43 mg/dl (0.44-1.00); GLUCOSE 76 mg/dl (70-220); POTASSIUM 3.7 mmol/L (3.5-5.1); SODIUM 142 mmol/L (135-144)
[2018-01-24 23:30] LABS: BLOOD UREA NITROGEN < 2 mg/dl (7-20)
[2018-01-25 05:15] LABS: ANION GAP 10 (8-16); CALCIUM 8.7 mg/dl (8.4-10.2); CARBON DIOXIDE 22 mmol/L (21-31); CHLORIDE 115 mmol/L (97-110); CREATININE 0.39 mg/dl (0.44-1.00); GLUCOSE 72 mg/dl (70-220); POTASSIUM 3.5 mmol/L (3.5-5.1); SODIUM 143 mmol/L (135-144)
[2018-01-25] MEDS: NACL 3% 500 ML IV ×3 (05:17→15:57)
[2018-01-25 05:19] LABS: BLOOD UREA NITROGEN < 2 mg/dl (7-20)
[2018-01-25] MEDS: DOCUSATE SODIUM 100 MG CAP PO ×2 (08:08→21:07)
[2018-01-25] MEDS: LEVETIRACETAM 500 MG TAB PO ×2 (08:08→21:07)
[2018-01-25 12:28] LABS: ANION GAP 8 (8-16); BLOOD UREA NITROGEN 3 mg/dl (7-20); CALCIUM 7.8 mg/dl (8.4-10.2); CARBON DIOXIDE 21 mmol/L (21-31); CHLORIDE 134 mmol/L (97-110); CREATININE 0.36 mg/dl (0.44-1.00); GLUCOSE 83 mg/dl (70-220); POTASSIUM 3.1 mmol/L (3.5-5.1); SODIUM 160 mmol/L (135-144)
[2018-01-25] MEDS: ATORVASTATIN 80 MG TAB PO (21:07)
[2018-01-25] MEDS: MAGNESIUM SULFATE 1 GM/D5W 100 ML IVPB (22:16)
[2018-01-25] MEDS: POTASSIUM CHLORIDE (SR) 20 MEQ TAB PO (22:16)
[2018-01-26] MEDS: ACETAMINOPHEN 650MG/20.3ML CUP PO (03:19)
[2018-01-26 06:13] LABS: ANION GAP 13 (8-16); BLOOD UREA NITROGEN 4 mg/dl (7-20); CARBON DIOXIDE 22 mmol/L (21-31); CHLORIDE 108 mmol/L (97-110); CREATININE 0.43 mg/dl (0.44-1.00); GLUCOSE 97 mg/dl (70-220); POTASSIUM 4.2 mmol/L (3.5-5.1); SODIUM 139 mmol/L (135-144)
[2018-01-26 06:55] LABS: ADD MAN DIFF? NO
[2018-01-26 06:59] LABS: ABNORMAL IP MESSAGE 1; BASOPHILS % 0.7 % (0.0-2.0); EOSINOPHILS # 0.2 10^3/ul (0.0-0.5); HEMATOCRIT 37.5 % (37.0-47.0); HEMOGLOBIN 11.1 g/dl (12.0-16.0); LYMPHOCYTES # 1.1 10^3/ul (0.8-2.9); MEAN CORPUSCULAR HEMOGLOBIN 23.6 pg (29.0-33.0); MEAN CORPUSCULAR HGB CONC 29.6 g/dl (32.0-37.0); MEAN CORPUSCULAR VOLUME 79.6 fl (82.0-101.0); MONOCYTE # 0.4 10^3/ul (0.3-0.9); NEUTROPHIL # 3.7 10^3/ul (1.6-7.5); NEUTROPHILS % 66.9 % (39.0-77.0); PLATELET COUNT 272 10^3/UL (140-415); RED BLOOD COUNT 4.71 10^6/ul (4.20-5.40)
[2018-01-26 06:59] LABS: WHITE BLOOD COUNT 5.5 10^3/ul (4.8-10.8)
[2018-01-26] MEDS: DOCUSATE SODIUM 100 MG CAP PO ×2 (08:16→20:58)
[2018-01-26] MEDS: LEVETIRACETAM 500 MG TAB PO ×2 (08:16→20:58)
[2018-01-26] MEDS: ACETAMINOPHEN 325 MG TAB PO (10:24)
[2018-01-26] MEDS: ATORVASTATIN 80 MG TAB PO (20:58)
[2018-01-27] MEDS: ACETAMINOPHEN 325 MG TAB PO (01:46)
[2018-01-27 05:29] LABS: ADD MAN DIFF? NO
[2018-01-27 05:35] LABS: WHITE BLOOD COUNT 4.9 10^3/ul (4.8-10.8)
[2018-01-27 05:35] LABS: ABNORMAL IP MESSAGE 1; BASOPHIL # 0.1 10^3/ul (0.0-0.1); BASOPHILS % 1.4 % (0.0-2.0); EOSINOPHILS # 0.2 10^3/ul (0.0-0.5); EOSINOPHILS % 4.1 % (0.0-7.0); HEMATOCRIT 38.1 % (37.0-47.0); HEMOGLOBIN 11.5 g/dl (12.0-16.0); LYMPHOCYTES # 1.4 10^3/ul (0.8-2.9); MEAN CORPUSCULAR HEMOGLOBIN 23.8 pg (29.0-33.0); MEAN CORPUSCULAR HGB CONC 30.2 g/dl (32.0-37.0); MEAN CORPUSCULAR VOLUME 78.9 fl (82.0-101.0); MONOCYTE # 0.5 10^3/ul (0.3-0.9); MONOCYTES % 9.5 % (0.0-11.0); NEUTROPHIL # 2.8 10^3/ul (1.6-7.5); NEUTROPHILS % 55.8 % (39.0-77.0); PLATELET COUNT 283 10^3/UL (140-415); RED BLOOD COUNT 4.83 10^6/ul (4.20-5.40)
[2018-01-27 05:48] LABS: POSITIVE DIFF @See below
[2018-01-27 06:03] LABS: ANION GAP 11 (8-16); BLOOD UREA NITROGEN 6 mg/dl (7-20); CALCIUM 9.3 mg/dl (8.4-10.2); CARBON DIOXIDE 25 mmol/L (21-31); CHLORIDE 108 mmol/L (97-110); CREATININE 0.48 mg/dl (0.44-1.00); GLUCOSE 85 mg/dl (70-220); MAGNESIUM 1.8 mg/dl (1.7-2.5); PHOSPHORUS 5.5 mg/dl (2.5-4.9); POTASSIUM 4.1 mmol/L (3.5-5.1); SODIUM 140 mmol/L (135-144)
[2018-01-27] MEDS: LEVETIRACETAM 500 MG TAB PO ×2 (08:06→21:29)
[2018-01-27] MEDS: DOCUSATE SODIUM 100 MG CAP PO ×2 (08:06→21:29)
[2018-01-27] MEDS: ACETAMINOPHEN 650MG/20.3ML CUP PO (08:11)
[2018-01-27] MEDS: ATORVASTATIN 80 MG TAB PO (21:29)
[2018-01-28] MEDS: DOCUSATE SODIUM 100 MG CAP PO (08:12)
[2018-01-28] MEDS: LEVETIRACETAM 500 MG TAB PO (08:12)
== END 2018-01-28 18:20 | disposition home health service (06) | DRG 64 ==
LOC: MS4 01-21 15:49 → ICU 01-23 17:08 → MS2 01-27 06:41 → E/R 22:58 → ICU 01-16 01:55
PROC: 02HV33Z Insertion of Infusion Device into Superior Vena Cava, Percutaneous Approach (ICD-10-PCS; principal; 2018-01-16)
PROC: 02HV33Z Insertion of Infusion Device into Superior Vena Cava, Percutaneous Approach (ICD-10-PCS; 2018-01-23)
PROC: 30233N1 Transfusion of Nonautologous Red Blood Cells into Peripheral Vein, Percutaneous Approach (ICD-10-PCS; 2018-01-26)
DX: I63.512 Cerebral infarction due to unspecified occlusion or stenosis of left middle cerebral artery (principal); I61.9 Nontraumatic intracerebral hemorrhage, unspecified; G93.6 Cerebral edema; N39.0 Urinary tract infection, site not specified; R47.01 Aphasia; D50.9 Iron deficiency anemia, unspecified
CPT/HCPCS: 36415; 36430; 36569; 36600; 70450; 70546; 70549; 70551; 71045; 71250; 76856; 76937; 80048; 80053; 80061; 80202; 80307; 81001; 81025; 81240; 82105; 82270; 82378; 82728; 82803; 82962; 83036; 83540; 83605; 83615; 83690; 83735; 83890; 84100; 84436; 84443; 84466; 84479; 84484; 85025; 85045; 85300; 85302; 85305; 85610; 85613; 85730; 86146; 86147; 86301; 86304; 86592; 86703; 86850; 86900; 86901; 86920; 87040; 87081; 87086; 92507; 92526; 92610; 93005; 93306; 94640; 94664; 96374; 96375; 97110; 97116; 97163; 97164; 97165; 97167; 97168; 97530; 97535; 99291-25

== ENCOUNTER 2018-05-08 19:32 | Inpatient (IN) | payer MEDICAID ==
[2018-05-08] MEDS ORDERED: LORAZEPAM 0.5 MG TAB PO (20:00)
[2018-05-08] MEDS: SOD CHLORIDE 0.9% 1,000 ML IV (20:08)
[2018-05-08] MEDS: LORAZEPAM 2 MG INJ IV (20:11)
[2018-05-08 20:17] LABS: ADD MAN DIFF? NO
[2018-05-08 20:18] LABS: BASOPHILS % 0.6 % (0.0-2.0); EOSINOPHILS # 0.1 10^3/ul (0.0-0.5); EOSINOPHILS % 1.1 % (0.0-7.0); HEMATOCRIT 28.5 % (37.0-47.0); HEMOGLOBIN 8.4 g/dl (12.0-16.0); LYMPHOCYTES # 1.5 10^3/ul (0.8-2.9); LYMPHOCYTES % 24.2 % (15.0-51.0); MEAN CORPUSCULAR HEMOGLOBIN 25.8 pg (29.0-33.0); MEAN CORPUSCULAR HGB CONC 29.5 g/dl (32.0-37.0); MEAN CORPUSCULAR VOLUME 87.7 fl (82.0-101.0); MEAN PLATELET VOLUME 10.1 fl (7.4-10.4); MONOCYTE # 0.5 10^3/ul (0.3-0.9); MONOCYTES % 7.3 % (0.0-11.0); NEUTROPHIL # 4.2 10^3/ul (1.6-7.5); PLATELET COUNT 500 10^3/UL (140-415); RED BLOOD COUNT 3.25 10^6/ul (4.20-5.40); RED CELL DISTRIBUTION WIDTH 19.4 % (11.5-14.5)
[2018-05-08 20:18] LABS: WHITE BLOOD COUNT 6.3 10^3/ul (4.8-10.8)
[2018-05-08 20:25] LABS: ADD UMIC NO; UR ASCORBIC ACID NEGATIVE (NEGATIVE); UR BILIRUBIN (Dip) NEGATIVE (NEGATIVE); UR BLOOD (Dip) NEGATIVE (NEGATIVE); UR CLARITY CLEAR (CLEAR); UR COLOR COLORLESS (YELLOW); UR GLUCOSE (Dip) NEGATIVE (NEGATIVE); UR KETONES (Dip) NEGATIVE (NEGATIVE); UR LEUKOCYTE ESTERASE (Dip) NEGATIVE Leu/ul (NEGATIVE); UR NITRITE (Dip) NEGATIVE (NEGATIVE); UR SPECIFIC GRAVITY (Dip) 1.003 (1.003-1.030); UR TOTAL PROTEIN (Dip) NEGATIVE (NEGATIVE); UR UROBILINOGEN (Dip) NEGATIVE (NEGATIVE)
[2018-05-08 20:43] LABS: PROTIME 13.3 Sec (11.9-14.9)
[2018-05-08 20:45] LABS: PARTIAL THROMBOPLASTIN TIME 30.8 Sec (23.0-35.0)
[2018-05-08 20:50] LABS: ALANINE AMINOTRANSFERASE 61 IU/L (13-69); ALBUMIN 4.6 g/dl (3.3-4.9); ALBUMIN/GLOBULIN RATIO 1.31; ALKALINE PHOSPHATASE 143 IU/L (42-121); ANION GAP 10 (5-13); ASPARTATE AMINO TRANSFERASE 55 IU/L (15-46); BILIRUBIN,INDIRECT 0.3 mg/dl (0-1.1); BILIRUBIN,TOTAL 0.3 mg/dl (0.2-1.3); BLOOD UREA NITROGEN 9 mg/dl (7-20); CALCIUM 9.4 mg/dl (8.4-10.2); CARBON DIOXIDE 24 mmol/L (21-31); CHLORIDE 107 mmol/L (97-110); CREATININE 0.83 mg/dl (0.44-1.00); Estimated GFR > 60 mL/min (>60); GLUCOSE 94 mg/dl (70-220); LIPASE 135 U/L (23-300); POTASSIUM 3.8 mmol/L (3.5-5.1); SODIUM 141 mmol/L (135-144); TOTAL PROTEIN 8.1 g/dl (6.1-8.1)
[2018-05-08 20:59] LABS: TROPONIN-I < 0.012 ng/ml (0.000-0.120)
[2018-05-08] MEDS: SOD CHLORIDE 0.9% 100 ML (21:32)
[2018-05-08] MEDS: IOHEXOL 100 ML (21:32)
[2018-05-08] MEDS: ASPIRIN 300 MG SUPP PR (21:46)
[2018-05-08] MEDS ORDERED: ACETAMINOPHEN 325 MG TAB PO (22:00)
[2018-05-08] MEDS ORDERED: ALBUTEROL/IPRATROPIUM (NEB) 3 ML AMP HHN (22:00)
[2018-05-08] MEDS ORDERED: ONDANSETRON 4 MG INJ IV (22:00)
[2018-05-08] MEDS ORDERED: NACL 0.9% 3 ML SYG IV (22:00)
[2018-05-09] MEDS: DEXTROSE 5%-0.45% NACL 1,000 ML IV ×3 (01:10→20:16)
[2018-05-09 05:42] LABS: ADD MAN DIFF? NO
[2018-05-09 05:49] LABS: BASOPHILS % 0.4 % (0.0-2.0); EOSINOPHILS # 0.1 10^3/ul (0.0-0.5); HEMATOCRIT 24.1 % (37.0-47.0); LYMPHOCYTES # 1.4 10^3/ul (0.8-2.9); MEAN CORPUSCULAR HEMOGLOBIN 25.6 pg (29.0-33.0); MEAN CORPUSCULAR VOLUME 88.3 fl (82.0-101.0); MONOCYTE # 0.4 10^3/ul (0.3-0.9); NEUTROPHIL # 3.1 10^3/ul (1.6-7.5); NEUTROPHILS % 61.2 % (39.0-77.0); PLATELET COUNT 404 10^3/UL (140-415); RED BLOOD COUNT 2.73 10^6/ul (4.20-5.40); RED CELL DISTRIBUTION WIDTH 19.9 % (11.5-14.5)
[2018-05-09 06:21] LABS: ALANINE AMINOTRANSFERASE 50 IU/L (13-69); ALBUMIN/GLOBULIN RATIO 1.07; ALKALINE PHOSPHATASE 105 IU/L (42-121); ANION GAP 6 (5-13); ASPARTATE AMINO TRANSFERASE 39 IU/L (15-46); BILIRUBIN,INDIRECT 0.2 mg/dl (0-1.1); BILIRUBIN,TOTAL 0.2 mg/dl (0.2-1.3); BLOOD UREA NITROGEN 9 mg/dl (7-20); CARBON DIOXIDE 20 mmol/L (21-31); CHLORIDE 114 mmol/L (97-110); CREATININE 0.51 mg/dl (0.44-1.00); Estimated GFR > 60 mL/min (>60); GLUCOSE 81 mg/dl (70-220); POTASSIUM 3.8 mmol/L (3.5-5.1); SODIUM 140 mmol/L (135-144); TOTAL PROTEIN 5.8 g/dl (6.1-8.1)
[2018-05-09 08:31] LABS: TOTAL IRON BINDING CAPACITY 329 ug/dl (241-421)
[2018-05-09 08:32] LABS: IRON < 10 ug/dl (35-150)
[2018-05-09 09:20] LABS: HEMATOCRIT 26.5 % (37.0-47.0); HEMOGLOBIN 7.6 g/dl (12.0-16.0)
[2018-05-09] MEDS: SOD CHLORIDE 0.9% 250 ML IV* (10:35)
[2018-05-09] MEDS: LEVETIRACETAM 500 MG TAB PO ×2 (11:25→20:16)
[2018-05-09 15:32] LABS: IMMEDIATE SPIN CROSSMATCH 1 2
[2018-05-09] MEDS: ATORVASTATIN 80 MG TAB PO (20:16)
[2018-05-10] MEDS: DEXTROSE 5%-0.45% NACL 1,000 ML IV ×2 (03:48→13:48)
[2018-05-10 06:18] LABS: ADD MAN DIFF? NO
[2018-05-10 06:24] LABS: BASOPHILS % 0.8 % (0.0-2.0); EOSINOPHILS # 0.1 10^3/ul (0.0-0.5); EOSINOPHILS % 2.7 % (0.0-7.0); HEMATOCRIT 32.5 % (37.0-47.0); HEMOGLOBIN 9.8 g/dl (12.0-16.0); LYMPHOCYTES # 1.4 10^3/ul (0.8-2.9); LYMPHOCYTES % 28.6 % (15.0-51.0); MEAN CORPUSCULAR HEMOGLOBIN 25.9 pg (29.0-33.0); MEAN CORPUSCULAR HGB CONC 30.2 g/dl (32.0-37.0); MEAN PLATELET VOLUME 9.9 fl (7.4-10.4); MONOCYTE # 0.4 10^3/ul (0.3-0.9); MONOCYTES % 9.1 % (0.0-11.0); NEUTROPHIL # 2.9 10^3/ul (1.6-7.5); NEUTROPHILS % 58.6 % (39.0-77.0); PLATELET COUNT 391 10^3/UL (140-415); RED BLOOD COUNT 3.78 10^6/ul (4.20-5.40)
[2018-05-10 06:24] LABS: WHITE BLOOD COUNT 4.9 10^3/ul (4.8-10.8)
[2018-05-10 06:41] LABS: PHOSPHORUS 4.2 mg/dl (2.5-4.9)
[2018-05-10 07:02] LABS: ANION GAP 8 (5-13); BLOOD UREA NITROGEN 5 mg/dl (7-20); CALCIUM 8.6 mg/dl (8.4-10.2); CARBON DIOXIDE 23 mmol/L (21-31); CHLORIDE 110 mmol/L (97-110); CREATININE 0.57 mg/dl (0.44-1.00); Estimated GFR > 60 mL/min (>60); GLUCOSE 84 mg/dl (70-220); POTASSIUM 3.8 mmol/L (3.5-5.1); SODIUM 141 mmol/L (135-144)
[2018-05-10] MEDS: LEVETIRACETAM 500 MG TAB PO (08:04)
[2018-05-10 14:01] LABS: OCCULT BLOOD STOOL NEGATIVE (NEGATIVE)
== END 2018-05-10 18:25 | disposition home or self-care (01) | DRG 93 ==
LOC: 6WM 21:44 → E/R 19:32 → 6WM 05-09 14:34
PROVIDERS: Internal Medicine
DX: R29.810 Facial weakness (principal); D25.9 Leiomyoma of uterus, unspecified; E78.5 Hyperlipidemia, unspecified; D50.9 Iron deficiency anemia, unspecified
CPT/HCPCS: 36415; 36430; 70450; 70496; 70498; 70551; 71045; 80048; 80053; 81003; 81025; 82270; 82728; 82962; 83540; 83690; 83735; 84100; 84484; 85014; 85018; 85025; 85610; 85730; 86850; 86900; 86901; 86920; 87086; 92610; 93005; 96361; 96374; 97161; 99285-25

== ENCOUNTER 2018-12-16 22:22 | Emergency (ER) | payer MEDICAID ==
[2018-12-16] MEDS: LORAZEPAM 2 MG INJ IV (23:00)
[2018-12-16 23:48] LABS: ADD MAN DIFF? NO
[2018-12-16] MEDS: SOD CHLORIDE 0.9% 500 ML IV (23:51)
[2018-12-16 23:55] LABS: WHITE BLOOD COUNT 4.8 10^3/ul (4.8-10.8)
[2018-12-16 23:55] LABS: BASOPHILS % 0.6 % (0.0-2.0); EOSINOPHILS # 0.1 10^3/ul (0.0-0.5); EOSINOPHILS % 1.3 % (0.0-7.0); HEMATOCRIT 25.8 % (37.0-47.0); HEMOGLOBIN 7.1 g/dl (12.0-16.0); LYMPHOCYTES # 0.8 10^3/ul (0.8-2.9); LYMPHOCYTES % 17.5 % (15.0-51.0); MEAN CORPUSCULAR HEMOGLOBIN 25.6 pg (29.0-33.0); MEAN CORPUSCULAR HGB CONC 27.5 g/dl (32.0-37.0); MEAN CORPUSCULAR VOLUME 93.1 fl (82.0-101.0); MEAN PLATELET VOLUME 9.9 fl (7.4-10.4); MONOCYTE # 0.4 10^3/ul (0.3-0.9); MONOCYTES % 7.3 % (0.0-11.0); NEUTROPHIL # 3.5 10^3/ul (1.6-7.5); NEUTROPHILS % 72.7 % (39.0-77.0); NUCLEATED RED BLOOD CELLS% 0.4 /100WBC (0.0-0.0); PLATELET COUNT 384 10^3/UL (140-415); RED BLOOD COUNT 2.77 10^6/ul (4.20-5.40); RED CELL DISTRIBUTION WIDTH 19.2 % (11.5-14.5)
[2018-12-16 23:56] LABS: ABNORMAL IP MESSAGE 1
[2018-12-17 00:07] LABS: POSITIVE DIFF @See below
[2018-12-17 00:19] LABS: INR 1.01; PARTIAL THROMBOPLASTIN TIME 27.5 Sec (23.0-35.0); PROTIME 13.4 Sec (11.9-14.9)
[2018-12-17 00:22] LABS: ANION GAP 7 (5-13); BLOOD UREA NITROGEN 6 mg/dl (7-20); CALCIUM 9.1 mg/dl (8.4-10.2); CARBON DIOXIDE 24 mmol/L (21-31); CHLORIDE 110 mmol/L (97-110); CREATININE 0.53 mg/dl (0.44-1.00); Estimated GFR > 60 mL/min (>60); GLUCOSE 92 mg/dl (70-220); POTASSIUM 3.9 mmol/L (3.5-5.1); SODIUM 141 mmol/L (135-144)
[2018-12-17 00:34] LABS: TROPONIN-I < 0.012 ng/ml (0.000-0.120)
== END 2018-12-17 01:05 | disposition home or self-care (01) ==
LOC: E/R 12-17 01:05
DX: R20.0 Anesthesia of skin (principal); R51 Headache; R40.2142 Coma scale, eyes open, spontaneous, at arrival to emergency department; R40.2252 Coma scale, best verbal response, oriented, at arrival to emergency department; R40.2362 Coma scale, best motor response, obeys commands, at arrival to emergency department; Z86.73 Personal history of transient ischemic attack (TIA), and cerebral infarction without residual deficits
CPT/HCPCS: 36415; 70450; 71045; 80048; 84484; 85025; 85610; 85730; 93005; 99285-25